=== PATIENT | female | born 2000 | race Hispanic/Latino ===

== ENCOUNTER 2021-08-08 08:27 | Observation (INO) | payer MEDICAID ==
[~2021-08-08] VITALS: Ht 157.5 cm; Wt 61.7 kg
[2021-08-08 08:29] VITALS: BP 124/83
[2021-08-08 09:14] LABS: APPEARANCE,URINE CLEAR (CLEAR); BILIRUBIN,URINE NEGATIVE (NEGATIVE); COLOR,URINE YELLOW (YELLOW); GLUCOSE, URINE (UA) NEGATIVE (NEGATIVE); KETONES,URINE NEGATIVE (NEGATIVE); LEUKOCYTE ESTERASE ,URINE TRACE (NEGATIVE); NITRATE,URINE NEGATIVE (NEGATIVE); OCCULT BLOOD,URINE NEGATIVE (NEGATIVE); PROTEIN,URINE NEGATIVE (NEGATIVE); UROBILINOGEN,URINE 0.2 mg/dL (0.2-1.0)
[2021-08-08] MEDS ORDERED: LACTATED RINGERS 1000ML 1,000 ML IV ONE (09:30)
[2021-08-08 09:32] LABS: BACTERIA,URINE Rare /HPF (None Seen); RBC,URINE 0-1 /HPF (0-1); SQUAMOUS EPITHELIAL CELL,UR Few /HPF (0-2); WBC,URINE 0-1 /HPF (0-1)
[2021-08-08] MEDS ORDERED: TERBUTALINE SULFATE VIAL 1MG/ML SQ SCH (10:00)
[2021-08-08] MEDS ORDERED: FLUCONAZOLE 100 MG TAB PO SCH (10:00)
[2021-08-08] MEDS ORDERED: LACTATED RINGERS 1000ML 1,000 ML IV PRN (10:00)
== END 2021-08-08 11:58 | disposition home or self-care (01) ==
LOC: EDH 08:27 → LDH 08:28
PROVIDERS: ADMIT Internal Medicine; ATTEND Internal Medicine
DX: O60.03 Preterm labor without delivery, third trimester (principal); Z3A.29 29 weeks gestation of pregnancy
CPT/HCPCS: 96372; 96360; 81001; 76805; G0378 ×3; J7120 ×2; J3105

== ENCOUNTER 2022-02-18 18:55 | Emergency (ER) | payer MEDICAID ==
[~2022-02-18] VITALS: Ht 152.4 cm; Wt 56.7 kg
[2022-02-18] MEDS ORDERED: AZIT250T9 PO (20:50)
[2022-02-18] MEDS ORDERED: BENZ-39 PO (20:50)
[2022-02-18] MEDS ORDERED: ONDA4TAB10 PO (21:03)
[2022-02-18 21:04] VITALS: BP 141/90
== END 2022-02-18 21:07 | disposition home or self-care (01) ==
LOC: EDH 18:55
DX: B34.9 Viral infection, unspecified (principal); J02.9 Acute pharyngitis, unspecified; R05.9 Cough, unspecified; Z20.822 Contact with and (suspected) exposure to COVID-19; Z79.899 Other long term (current) drug therapy
CPT/HCPCS: 99283; 87635; 87880; 87804 ×2; C9803

== ENCOUNTER 2022-08-11 14:46 | Emergency (ER) | payer MEDICAID ==
[~2022-08-11] VITALS: Ht 149.9 cm; Wt 56.7 kg
[~2022-08-11 14:46] MED LIST: AZIT250T9 PO; BENZ-39 PO; ONDA4TAB10 PO
[2022-08-11 15:24] LABS: APPEARANCE,URINE CLEAR (CLEAR); BILIRUBIN,URINE NEGATIVE (NEGATIVE); COLOR,URINE COLORLESS (YELLOW); GLUCOSE, URINE (UA) NEGATIVE (NEGATIVE); KETONES,URINE 20 mg/dL (NEGATIVE); LEUKOCYTE ESTERASE ,URINE NEGATIVE Leu/uL (NEGATIVE); NITRATE,URINE NEGATIVE (NEGATIVE); OCCULT BLOOD,URINE NEGATIVE (NEGATIVE); PH,URINE 6.5 (5.0-8.0); PROTEIN,URINE NEGATIVE (NEGATIVE); UROBILINOGEN,URINE 0.2 mg/dL (0.2-1.0)
[2022-08-11 15:28] LABS: BASOPHILS % (AUTO) 0.5 % (0.0-5.0); EOSINOPHILS % (AUTO) 0.1 % (0.0-8.0); HEMATOCRIT 42.2 % (36-48); LYMPHOCYTES % (AUTO) 12.3 % (21.0-51.0); MEAN CORPUSCULAR HEMOGLOBIN 27.9 pg (27.0-33.0); MEAN CORPUSCULAR VOLUME 87.2 fL (79-99); MONOCYTES % (AUTO) 3.8 % (3.0-13.0); NEUTROPHILS % (AUTO) 83.1 % (40.0-77.0); PLATELET COUNT (AUTO) 273 K/uL (130-400); RED BLOOD CELL COUNT(AUTO) 4.84 MIL/uL (4.00-5.50); RED CELL DISTRIBUTION WIDTH 12.5 % (11.0-15.5); WHITE BLOOD COUNT (AUTO) 12.7 K/uL (4.8-10.8)
[2022-08-11 15:30] LABS: HCG,QUALITATIVE URINE NEGATIVE (NEGATIVE)
[2022-08-11 15:35] LABS: CREATININE 0.7 mg/dL (0.5-1.5)
[2022-08-11 15:35] LABS: MUCUS,URINE RARE LPF (None Seen); RBC,URINE 0-1 /HPF (0-1); SQUAMOUS EPITHELIAL CELL,UR FEW /HPF (0-2)
[2022-08-11 15:39] LABS: ALBUMIN 4.4 g/dL (3.5-5.0); TOTAL PROTEIN, SERUM 8.1 g/dL (6.0-8.3)
[2022-08-11] MEDS ORDERED: DICYCLOMINE HCL 10 MG/5 ML ML PO ONE (16:00)
[2022-08-11] MEDS ORDERED: MAG/ALUM/SIMETH 30 ML UDCUP PO ONE (16:00)
[2022-08-11] MEDS ORDERED: ONDANSETRON ODT 4MG TAB SL ONE (16:00)
[2022-08-11] MEDS ORDERED: LIDOCAINE HCL 2% VISCOUS 15 ML UDCUP PO ONE (16:00)
[2022-08-11] MEDS ORDERED: FAMOTIDINE 20MG TAB PO ONE (16:00)
[2022-08-11 16:20] VITALS: BP 122/72
[2022-08-11] MEDS ORDERED: FAMO20TA8 PO (16:41)
== END 2022-08-11 17:10 | disposition home or self-care (01) ==
LOC: EDH 14:46
DX: K29.00 Acute gastritis without bleeding (principal)
CPT/HCPCS: 36415; 80053; 81001; 81025; 82150; 83690; 85025